=== PATIENT | female | born 1935 | race African-American/Black ===

== ENCOUNTER 2017-01-02 20:18 | Emergency (ER) | payer MEDICARE, MEDICAID ==
[~2017-01-02] VITALS: Ht 154.9 cm; Wt 57.0 kg
[2017-01-02 21:28] LABS: BASOPHILS % 0.7 % (0.0-2.0); EOSINOPHILS % 1.6 % (0.0-5.0); HEMATOCRIT. 36.3 % (36.0-48.0); HEMOGLOBIN. 12.2 g/dL (12.0-16.0); LYMPHOCYTES % 46.5 % (20.0-50.0); MEAN CORPUSCULAR HEMOGLOBIN 28.1 pg (28.0-32.0); MEAN CORPUSCULAR VOLUME 83.5 fL (81.0-99.0); MEAN PLATELET VOLUME 7.1 fl (7.4-10.4); NEUTROPHILS % 41.2 % (40.0-76.0); PLATELET 393 x1000/uL (130-400); RED BLOOD CELL COUNT 4.35 mill/uL (4.2-5.4); RED CELL DISTRIBUTION WIDTH 15.7 % (11.6-14.6)
[2017-01-02 21:33] LABS: CHLORIDE 105 mEq/L (98-107); INR 0.9; PROTHROMBIN TIME 9.9 sec
[2017-01-02 21:39] LABS: CARBON DIOXIDE 28 mEq/L (21-32)
[2017-01-02 22:34] LABS: CLARITY URINE CLEAR (CLEAR); COLOR URINE YELLOW (YELLOW); GLUCOSE URINE NEGATIVE (NEGATIVE); KETONES URINE NEGATIVE (NEGATIVE); LEUKOCYTE ESTERASE URINE 3+ (NEGATIVE); NITRITE URINE NEGATIVE (NEGATIVE); OCCULT BLOOD URINE NEGATIVE (NEGATIVE); PH URINE 5.5 (4.5-8.0); PROTEIN URINE NEGATIVE (NEGATIVE); SPECIFIC GRAVITY URINE 1.013 (1.005-1.030)
[2017-01-02 22:55] VITALS: BP 135/68
== END 2017-01-02 23:28 | disposition left against medical advice (07) ==
LOC: ER 21:01
DX: G45.9 Transient cerebral ischemic attack, unspecified (principal); N30.00 Acute cystitis without hematuria; J45.909 Unspecified asthma, uncomplicated; E11.9 Type 2 diabetes mellitus without complications; M19.90 Unspecified osteoarthritis, unspecified site; Z88.6 Allergy status to analgesic agent; Z88.5 Allergy status to narcotic agent
CPT/HCPCS: 36415; 70450; 71010; 80053; 81001; 85025; 85610; 93005; 99285

== ENCOUNTER 2018-12-31 06:42 | Inpatient (IN) | payer MEDICARE, MEDICAID ==
[2018-12-31] VITALS (9 sets, daily range): BP systolic 110–144; BP diastolic 48–66
[~2018-12-31] VITALS: Ht 154.9 cm; Wt 58.8 kg
[2018-12-31] MEDS ORDERED: LIDOCAINE HCL 1% 20ML VIAL (Pyxis) INJ ONE (07:48)
[2018-12-31] MEDS ORDERED: IODIXANOL 320MG/ML 100 ML BOTTLE IV ONE ×2 (07:48→09:51)
[2018-12-31] MEDS ORDERED: IOHEXOL-300 100 ML BOTTLE ONE (07:49)
[2018-12-31] MEDS ORDERED: HEPARIN SODIUM 1,000 UNIT/1ML VIAL IV ONE (08:00)
[2018-12-31] MEDS ORDERED: NICARDIPINE 100MCG/ML 10ML VIAL (CATH LAB) IV ONE (08:00)
[2018-12-31] MEDS ORDERED: NITROGLYCERIN 50MCG/ML 10ML VIAL (CATH LAB) IV ONE (08:00)
[2018-12-31] MEDS ORDERED: BRIM5DRO6 EACHEYE (08:09)
[2018-12-31] MEDS ORDERED: ALEN70TA68 MT (08:09)
[2018-12-31] MEDS ORDERED: ATEN-42 MT (08:09)
[2018-12-31] MEDS ORDERED: FLUT1AER IH (08:09)
[2018-12-31] MEDS ORDERED: METF-815 PO (08:09)
[2018-12-31] MEDS ORDERED: CLOP75TA33 MT (08:09)
[2018-12-31] MEDS ORDERED: INSU100I33 SQ (08:09)
[2018-12-31] MEDS ORDERED: LATA2.5D2 EACHEYE (08:09)
[2018-12-31] MEDS ORDERED: FENTANYL CITRATE/PF 50MCG/ML 2ML VIAL ONE (08:23)
[2018-12-31] MEDS ORDERED: MIDAZOLAM HCL 2 MG/2 ML VIAL ONE (08:23)
[2018-12-31] MEDS ORDERED: CLOPIDOGREL 75MG TABLET ONE (09:59)
[2018-12-31] MEDS ORDERED: ASPIRIN 325MG EC TABLET PO ONE (10:04)
[2018-12-31] MEDS ORDERED: ACETAMINOPHEN 325MG TABLET PO PRN (10:30)
[2018-12-31] MEDS ORDERED: ATROPINE SULFATE 1MG/10ML SYR IV PRN (10:30)
[2018-12-31] MEDS ORDERED: ONDANSETRON HCL 4MG/2ML INJ IV PRN (10:30)
[2018-12-31] MEDS ORDERED: BRIM15DR8 OP (11:13)
[2018-12-31] MEDS ORDERED: DEXTROSE 50% WATER 50ML SYRINGE IV PRN (11:45)
[2018-12-31] MEDS: BLOOD SUGAR DIAGNOSTIC STRIP TEST SCH ×3 (11:50→20:33)
[2018-12-31] MEDS: INSULIN LISPRO 100 UNITS/ML SUBCUT SCH ×3 (12:20→20:48)
[2018-12-31] MEDS: ATENOLOL 25MG TABLET PO SCH (14:26)
[2019-01-01] VITALS (8 sets, daily range): BP systolic 109–123; BP diastolic 47–69
[2019-01-01] MEDS: BLOOD SUGAR DIAGNOSTIC STRIP TEST SCH (07:04)
[2019-01-01] MEDS: INSULIN LISPRO 100 UNITS/ML SUBCUT SCH (07:20)
[2019-01-01 07:44] LABS: BASOPHILS % 1.2 % (0.0-2.0); EOSINOPHILS % 1.1 % (0.0-5.0); HEMATOCRIT. 38.5 % (36.0-48.0); HEMOGLOBIN. 13.3 g/dL (12.0-16.0); LYMPHOCYTES % 35.8 % (20.0-50.0); MEAN CORPUSCULAR HEMOGLOBIN 29.8 pg (28.0-32.0); MEAN CORPUSCULAR VOLUME 86.3 fL (81.0-99.0); MONOCYTES % 11.8 % (2.0-8.0); NEUTROPHILS % 50.1 % (40.0-76.0); PLATELET 377 x1000/uL (130-400); RED BLOOD CELL COUNT 4.46 mill/uL (4.2-5.4); RED CELL DISTRIBUTION WIDTH 15.1 % (11.6-14.6)
[2019-01-01 07:58] LABS: CHLORIDE 102 mEq/L (98-107)
[2019-01-01 08:07] LABS: LDL CHOLESTEROL 76 mg/dL (5-100)
[2019-01-01 08:09] LABS: HDL CHOLESTEROL 61 mg/dL (40-59)
[2019-01-01] MEDS: ATENOLOL 25MG TABLET PO SCH (08:39)
[2019-01-01] MEDS ORDERED: ASPIRIN 325MG TABLET PO SCH (09:00)
[2019-01-01] MEDS ORDERED: CLOPIDOGREL 75MG TABLET PO SCH (09:00)
== END 2019-01-01 12:19 | disposition home or self-care (01) | DRG 251 ==
LOC: CCL 06:42 → 3WST 06:43
PROVIDERS: ADMIT Specialist; ATTEND Specialist
PROC: 02703ZZ Dilation of Coronary Artery, One Artery, Percutaneous Approach (ICD-10-PCS; principal; 2018-12-31)
PROC: 4A023N7 Measurement of Cardiac Sampling and Pressure, Left Heart, Percutaneous Approach (ICD-10-PCS; 2018-12-31)
PROC: B211YZZ Fluoroscopy of Multiple Coronary Arteries using Other Contrast (ICD-10-PCS; 2018-12-31)
PROC: B215YZZ Fluoroscopy of Left Heart using Other Contrast (ICD-10-PCS; 2018-12-31)
DX: I25.119 Atherosclerotic heart disease of native coronary artery with unspecified angina pectoris (principal); I25.84 Coronary atherosclerosis due to calcified coronary lesion; E11.9 Type 2 diabetes mellitus without complications; I11.9 Hypertensive heart disease without heart failure; E78.5 Hyperlipidemia, unspecified; J44.9 Chronic obstructive pulmonary disease, unspecified; M19.90 Unspecified osteoarthritis, unspecified site; M81.0 Age-related osteoporosis without current pathological fracture; I35.1 Nonrheumatic aortic (valve) insufficiency; Z79.02 Long term (current) use of antithrombotics/antiplatelets; Z79.82 Long term (current) use of aspirin; Z82.49 Family history of ischemic heart disease and other diseases of the circulatory system; Z83.3 Family history of diabetes mellitus; Z86.73 Personal history of transient ischemic attack (TIA), and cerebral infarction without residual deficits; Z79.4 Long term (current) use of insulin; Z79.899 Other long term (current) drug therapy
CPT/HCPCS: 36415; 80048; 80061; 82962; 83036; 83735; 85347; 92920; 93005; 93458; C1725; C1769; C1887; C1893; J1644; J2250; J3010; J3490; Q9967

== ENCOUNTER 2019-02-19 19:36 | Inpatient (IN) | payer MEDICARE, MEDICAID ==
[~2019-02-19] VITALS: Ht 156.2 cm; Wt 55.8 kg
[~2019-02-19 19:36] MED LIST: ALEN70TA68 PO; ATEN-42 PO; BRIM15DR8 OP; BRIM5DRO6 EACHEYE; CLOP75TA33 PO; FLUT1AER IH; INSU100I33 SQ; LATA2.5D2 EACHEYE; METF-815 PO
[2019-02-19 22:45] LABS: BASOPHILS % 0.7 % (0.0-2.0); EOSINOPHILS % 0.6 % (0.0-5.0); HEMATOCRIT. 37.9 % (36.0-48.0); HEMOGLOBIN. 13.2 g/dL (12.0-16.0); LYMPHOCYTES % 33.5 % (20.0-50.0); MEAN CORPUSCULAR HEMOGLOBIN 30.3 pg (28.0-32.0); MEAN CORPUSCULAR VOLUME 87.2 fL (81.0-99.0); MEAN PLATELET VOLUME 7.2 fl (7.4-10.4); MONOCYTES % 9.9 % (2.0-8.0); NEUTROPHILS % 55.3 % (40.0-76.0); PLATELET 385 x1000/uL (130-400); RED BLOOD CELL COUNT 4.34 mill/uL (4.2-5.4); RED CELL DISTRIBUTION WIDTH 14.7 % (11.6-14.6)
[2019-02-19] MEDS ORDERED: ACETAMINOPHEN 500MG TABLET PO ONE (22:45)
[2019-02-19 22:50] LABS: INR 0.9; PROTHROMBIN TIME 9.4 sec (9.6-11.0)
[2019-02-19 23:05] LABS: CHLORIDE 100 mEq/L (98-107)
[2019-02-20 03:10] LABS: CLARITY URINE CLEAR (CLEAR); COLOR URINE YELLOW (YELLOW); KETONES URINE NEGATIVE (NEGATIVE); LEUKOCYTE ESTERASE URINE 1+ (NEGATIVE); NITRITE URINE NEGATIVE (NEGATIVE); OCCULT BLOOD URINE NEGATIVE (NEGATIVE); PROTEIN URINE NEGATIVE (NEGATIVE); SPECIFIC GRAVITY URINE 1.007 (1.005-1.030); UROBILINOGEN URINE 0.2 E.U./dL (0.2-1.0)
[2019-02-20] MEDS ORDERED: IOHEXOL-350 100 ML BOTTLE ONE (03:21)
[2019-02-20] MEDS ORDERED: SODIUM CHLORIDE 0.9% 500 ML IV ONE (03:38)
[2019-02-20 04:00] VITALS: BP 109/50
[2019-02-20] MEDS ORDERED: INSU100I33 SQ (04:14)
[2019-02-20] MEDS ORDERED: ALBU4TAB6 PO (04:14)
[2019-02-20] MEDS ORDERED: B50 PO (04:14)
[2019-02-20 07:55] VITALS: BP 120/59
[2019-02-20] MEDS ORDERED: DEXTROSE 50% WATER 50ML SYRINGE IV PRN (11:15)
[2019-02-20] MEDS ORDERED: DIPHENHYDRAMINE 50MG CAPSULE PO PRN (11:30)
[2019-02-20] MEDS ORDERED: ATENOLOL 50 MG TABLET PO SCH (11:30)
[2019-02-20 12:05] VITALS: BP 118/57
[2019-02-20 12:06] LABS: CHLORIDE 102 mEq/L (98-107)
[2019-02-20] MEDS ORDERED: ATENOLOL 25MG TABLET PO SCH (12:15)
[2019-02-20] MEDS: BLOOD SUGAR DIAGNOSTIC STRIP TEST SCH ×3 (12:40→21:04)
[2019-02-20] MEDS: ALBUTEROL 2MG TABLET PO SCH ×2 (13:59→14:26)
[2019-02-20] MEDS: CLOPIDOGREL 75MG TABLET PO SCH (13:59)
[2019-02-20] MEDS: INSULIN LISPRO 100 UNITS/ML SUBCUT SCH ×3 (14:08→21:00)
[2019-02-20 15:39] VITALS: BP 130/65
[2019-02-20] MEDS: ACETAMINOPHEN 325MG TABLET PO PRN (16:05)
[2019-02-20] MEDS: BRIMONIDINE 0.2% OPHTH DROPS 5ML EACHEYE SCH (18:14)
[2019-02-20] MEDS: ENOXAPARIN 30MG/0.3ML SYR SUBCUT SCH (18:14)
[2019-02-20] MEDS ORDERED: INS NPH/REG HM 70-30 100 UNITS/ML 10ML VIAL (HUMULIN 70-30) SUBCUT SCH (18:15)
[2019-02-20 20:11] VITALS: BP 118/60
[2019-02-20] MEDS ORDERED: LATANOPROST 0.005% OPHTH DROPS 2.5ML EACHEYE SCH (21:00)
[2019-02-21 00:53] VITALS: BP 124/58
[2019-02-21] MEDS: ACETAMINOPHEN 325MG TABLET PO PRN (04:12)
[2019-02-21 04:35] VITALS: BP 143/71
[2019-02-21 06:37] LABS: CHLORIDE 102 mEq/L (98-107)
[2019-02-21 06:42] LABS: BASOPHILS % 0.6 % (0.0-2.0); EOSINOPHILS % 0.7 % (0.0-5.0); HEMATOCRIT. 37.2 % (36.0-48.0); HEMOGLOBIN. 13.1 g/dL (12.0-16.0); MEAN CORPUSCULAR VOLUME 85.1 fL (81.0-99.0); MEAN PLATELET VOLUME 7.1 fl (7.4-10.4); MONOCYTES % 10.1 % (2.0-8.0); NEUTROPHILS % 49.6 % (40.0-76.0); PLATELET 393 x1000/uL (130-400); RED BLOOD CELL COUNT 4.38 mill/uL (4.2-5.4); RED CELL DISTRIBUTION WIDTH 14.4 % (11.6-14.6)
[2019-02-21] MEDS ORDERED: ALENDRONATE SODIUM 35MG TABLET PO SCH (07:00)
[2019-02-21 08:00] VITALS: BP 110/55
[2019-02-21] MEDS: INSULIN LISPRO 100 UNITS/ML SUBCUT SCH ×2 (08:10→13:24)
[2019-02-21] MEDS ORDERED: INS NPH/REG HM 70-30 100 UNITS/ML 10ML VIAL (HUMULIN 70-30) SUBCUT SCH (08:15)
[2019-02-21] MEDS: BRIMONIDINE 0.2% OPHTH DROPS 5ML EACHEYE SCH (08:34)
[2019-02-21] MEDS: ENOXAPARIN 30MG/0.3ML SYR SUBCUT SCH (08:34)
[2019-02-21] MEDS: CLOPIDOGREL 75MG TABLET PO SCH (08:35)
[2019-02-21] MEDS: BLOOD SUGAR DIAGNOSTIC STRIP TEST SCH ×2 (08:37→13:25)
[2019-02-21 12:00] VITALS: BP 111/58
[2019-02-21] MEDS ORDERED: POTASSIUM CHLORIDE 20MEQ TABLET SR PO SCH (12:00)
[2019-02-21 13:33] VITALS: BP 111/58
== END 2019-02-21 15:02 | disposition home or self-care (01) | DRG 565 ==
LOC: ER 19:36 → 7WST 02-20 00:29 → EDBEDREQTM 02-20 00:32 → EDBEDREQ 02-20 00:32 → ENRESERV 02-20 01:21
PROVIDERS: ADMIT Internal Medicine; ATTEND Internal Medicine
DX: M25.412 Effusion, left shoulder (principal); E87.2 Acidosis; R58 Hemorrhage, not elsewhere classified; M19.90 Unspecified osteoarthritis, unspecified site; J45.909 Unspecified asthma, uncomplicated; E11.9 Type 2 diabetes mellitus without complications; I25.10 Atherosclerotic heart disease of native coronary artery without angina pectoris; E78.5 Hyperlipidemia, unspecified; J44.9 Chronic obstructive pulmonary disease, unspecified; I11.9 Hypertensive heart disease without heart failure; M81.0 Age-related osteoporosis without current pathological fracture; Z88.5 Allergy status to narcotic agent; Z90.49 Acquired absence of other specified parts of digestive tract; Z90.710 Acquired absence of both cervix and uterus; Z88.9 Allergy status to unspecified drugs, medicaments and biological substances; Z86.73 Personal history of transient ischemic attack (TIA), and cerebral infarction without residual deficits
CPT/HCPCS: 36415; 71045; 72040; 73206; 80048; 81003; 82962; 83605; 84145; 84484; 93005; 93970; 93971; 99285; J1650; J1815; Q9967